=== PATIENT | male | born 1955 | race Caucasian/White ===

== ENCOUNTER → 2022-11-04 | Outpatient (CLI) | payer MEDICARE ==
[2022-11-04 12:28] LABS: Partial Thromboplastin Time 24.7 sec (22.0-30.0)
[2022-11-04 18:07] LABS: HCT 39.8 % (39.6-50.0); HGB 13.7 g/dL (13.0-17.0); MCH 31.4 pg (27.0-32.0); MCHC 34.4 g/dL (32.0-37.0); MCV 91.3 fL (80.0-97.0); Mean Platelet Volume 9.3 fL (9.5-12.2); NRBC Per 100 WBC 0 /100 WBCS (0.0-0.0); Platelet Count 234 X 10*3/uL (140-440); RBC 4.36 X 10*6/uL (4.40-5.60); RDW 13.1 % (11.5-14.5); WBC 5.74 X 10*3/uL (4.50-10.00)
[2022-11-04 18:17] LABS: African American GFR (CKD) 90.5 (60.0-200.0); Albumin 4.8 g/dL (3.8-4.9); Albumin/Globulin Ratio 1.51 (1.60-3.17); Anion Gap 10.2 mmol/L (10.00-18.00); BUN/Creat Ratio 22.48 Ratio (12.00-20.00); Blood Urea Nitrogen 22.1 mg/dL (9.0-27.0); Calcium 10.5 mg/dL (8.7-10.3); Carbon Dioxide 23.7 mmol/L (20.0-27.5); Globulin 3.2 g/dL (1.6-3.3); Non-African American GFR(CKD) 78.1 (60.0-200.0); Potassium 4.9 mmol/L (3.5-5.5); Total Bilirubin 0.3 mg/dL (0.30-1.20); Total Protein 7.9 g/dL (6.2-8.2)
[2022-11-04 20:04] LABS: Appearance,Urine Clear (Clear); Bilirubin,Urine Negative (Negative); Blood,Urine Negative (Negative); Color,Urine Yellow (Yellow); Ketones,Urine Negative (Negative); Nitrite,Urine Negative (Negative); PH, Urine 6.5 (5.0-8.0); Specific Gravity,Urine 1.007 (1.001-1.030); Urobilinogen,Urine 0.2 (0.2,1.0)
[2022-11-04 22:52] LABS: Prothrombin Time 10.5 sec (9.0-12.0)
== END | disposition home or self-care (01) ==
LOC: LABPAT 10:58
PROVIDERS: ATTEND Orthopaedic Surgery
DX: Z01.818 Encounter for other preprocedural examination (principal); M17.12 Unilateral primary osteoarthritis, left knee
CPT/HCPCS: 80053; 81003; 85027; 85610; 85730; 87070; 93005

== ENCOUNTER 2022-11-19 07:13 | Observation (INO) | payer MEDICARE ==
[~2022-11-19 07:13] MED LIST: ACETAMINOPHEN TAB 500 MG TAB PO PRN; DEXAMETHASONE SOD PHOSPHATE 4 MG/ML 1 ML VIAL IV ONE; GABAPENTIN 300 MG CAP PO PRN; HYDROmorphone 0.5 MG/0.5 ML SYRINGE IVP PRN; LACTATED RINGERS 1,000 ML IV SCH; LIDOCAINE 1% (10MG/ML) FOR IV START INTRADERMA PRN; MELOXICAM 7.5 MG TAB PO PRN; ONDANSETRON 4 MG/2 ML VIAL IVP ONE; TRANEXAMIC ACID IN NACL,ISO-OS 1,000 MG in SALINE 1 100ML.BAG IVPB PRN; VANCOMYCIN 1,750 MG in SODIUM CHLORIDE 0.9% 500 ML 500 ML IVPB PRN
[2022-11-19] MEDS ORDERED: MIDAZOLAM 2 MG/2 ML VIAL IVP ONE (08:37)
[2022-11-19] MEDS ORDERED: fentaNYL (PF) 50 MCG/1 ML VIAL IVP ONE (08:39)
--- NOTE | 2022-11-19 09:01 | P.ANPRN ---
Procedure Note - Anesthesia - Nerve Block Performed Left Adductor Canal Infusion Time Out Performed: Yes Date of Procedure: 11/19/22 Procedure Start Time: 08:35 Procedure Stop Time: 08:56 Location of Patient: PreOp Indication: Acute Post-Operative Pain, Requested by Surgeon Sedation Type: Sedate with meaningful contact maintained Preparation: Sterile Prep, Sterile Dressing Position: Supine Needle Types: On-Q Needle Gauge: 21 Ultrasound used to visualize needle placement: Yes Ultrasound used to observe medication spread: Yes Injectate: 0.5% Ropivacaine (see comment for volume) (30) Blood Aspirated: No Pain Paresthesia on Injection Noted: No Resistance on Injection: Normal Image Stored and Saved: Yes Left iPack Time Out Performed: Yes Date of Procedure: 11/19/22 Procedure Start Time: 08:26 Procedure Stop Time: 08:33 Location of Patient: PreOp Indication: Acute Post-Operative Pain, Requested by Surgeon Sedation Type: Sedate with meaningful contact maintained Preparation: Sterile Prep, Sterile Dressing Position: Supine Needle Types: Pajunk Needle Gauge: 21 Ultrasound used to visualize needle placement: Yes Ultrasound used to observe medication spread: Yes Injectate: 0.5% Ropivacaine (see comment for volume) (15) Blood Aspirated: No Pain Paresthesia on Injection Noted: No Resistance on Injection: Normal Image Stored and Saved: Yes
[2022-11-19] MEDS ORDERED: MIDAZOLAM 2 MG/2 ML VIAL ONE (09:02)
[2022-11-19] MEDS ORDERED: fentaNYL (PF) 50 MCG/ML 2 ML AMP ONE (09:02)
[2022-11-19] MEDS ORDERED: PHENYLEPHRINE-0.9% NACL SYG 1,000 MCG/10 ML SYRINGE ONE (09:02)
[2022-11-19] MEDS ORDERED: PROPOFOL 10 MG/ML 20 ML VIAL IV ONE (09:02)
[2022-11-19] MEDS ORDERED: VANCOMYCIN 1,000 MG VIAL ONE (09:02)
[2022-11-19] MEDS ORDERED: diphenhydrAMINE 50 MG/ML 1 ML VIAL ONE (09:02)
[2022-11-19] MEDS ORDERED: ROPIVACAINE 5 MG/ML 30 ML VIAL ONE (09:02)
[2022-11-19] MEDS ORDERED: KETAMINE 10 MG/ML 20 ML VIAL ONE (09:02)
--- NOTE | 2022-11-19 10:19 | P.OP ---
Date of Procedure: 11/19/22 Preoperative Diagnosis: Severe osteoarthritis left knee Postoperative Diagnosis: Severe Osteoarthritis left knee Procedure(s) Performed: Left total knee arthroplasty Implants: Toney [employer] Nephew Journey II CR Oxinium cruciate retaining femoral component size 6, left Toney [employer] Nephew Journey nonporous tibial baseplate size 6, left Toney [employer] Nephew Journey II, XLPE Deep Dished articular insert, size 9 mm, Size 5- 6, left [employer] Nephew Journey Gertrudis II resurfacing patellar component, oval, 32 mm All components were cemented using Palacos R bone cement The articulation is Oxinium on polyethylene Anesthesia: spinal Surgeon: Misael Gonzalez Poker Prop Player #1: Hattie Wharton Estimated Blood Loss (ml): 30 Pathology: other (Bone and cartilage) Condition: stable Disposition: PACU Indications for Procedure: This is a 67-year-old male with a history of left knee osteoarthritis. The patient's knee is end-stage, and conservative management has failed. The operation of knee replacement has been discussed at length in the office, as well as potential risks and complications. These are inclusive of, but not limited to: Infection, bleeding, scarring, discomfort, stiffness, blood vessel and nerve damage, need for further surgery, failure to relieve symptoms, persistence, recurrence, or worsening of problems, loosening, dislocation, wear, blood clot, pulmonary embolism, , gait dysfunction, stiffness, and other risks as discussed in the office. Patient elects to proceed and the consent form has been signed. Operative Findings: The operative findings are consistent with severe osteoarthritis of the left knee Description of Procedure: Patient was seen in the preoperative area and the consent was reviewed and the operative site was marked with a skin marker. The patient verified the procedure and the operative site. An adductor canal pain catheter and an IPACK block were placed by anesthesia in the preoperative area. The patient was then brought to the operating room and positioned on the operating room table in the supine position. Preoperative antibiotics and a gram of transexamic acid were given intravenously. A spinal anesthetic was administered by the anesthesia department. Care was taken to make sure that all pressure points were adequately padded. A tourniquet was placed on the upper thigh and the lower extremity was prepped with ChloraPrep and draped in usual sterile fashion. A universal timeout was then performed which confirmed the patient's name, surgical site, ALLERGIES, and consent. The lower extremity was then exsanguinated and tourniquet was inflated to 250 mmHg. A standard anterior midline approach to the knee was performed. The skin and subcutaneous tissue were sharply dissected down to the patellar tendon. A medial parapatellar arthrotomy was then performed. The knee was then extended, the patellar was everted, and the knee was flexed. The infra-patellar fat pad was removed in order to enhance exposure. The anterior horns of both menisci were excised, and a release was performed to the posterior medial aspect of the knee. On gross visual inspection, there was complete loss of articular cartil age in the medial and patellofemoral joint spaces. There was also significant cartilage damage in the lateral compartment. There were multiple periarticular osteophytes globally about the knee which were then removed with a Ronguer. The femoral canal was then opened with the 9.5 mm intramedullary drill. The 8 mm intramedullary chris was then inserted into the femoral canal with the distal femoral cutting guide set for 5 of valgus. The distal femoral cutting block was then pinned in place. The intramedullary chris was then removed, and the distal femur was then cut. The cutting block was then removed and the cut was checked for symmetry. The resected bone was then measured to confirm the appropriate distal femoral resection. Next, the sizing guide was then placed and set for 3 external rotation based off of the epicondylar axis and Kelechi's line. Pins were then placed and the drill holes, and the femur was sized with the sizing stylus. The pins were then removed, and the sizing guide was then removed. The spikes of the appropriate size femoral block was then placed into the predrilled holes, and malleted into place. Two 45 mm pins were then placed into the fixation holes on the cutting block. An anival wing was then used to ensure there would be no notching with the anterior cut. The anterior condyles were cut without notching. The anterior chord cut was then performed, followed by the posterior cut, posterior chamfer cut, and the anterior chamfer cut. The collateral ligaments were protected during the entire process. The cutting block was then removed. Any remaining bone and osteophytes were removed from the femur with a Ronguer. Attention was then directed to the tibia. The remaining ACL was removed with a Ronguer, and the tibia was then gently subluxed forward with a large bent knee retractor. Any remaining menisci were excised. The posterior lateral corner was cauterized in order to coagulate the lateral geniculate artery. The extra medullary tibial cutting guide was then placed, set for the appropriate rotation, slope, and depth of resection. The proximal tibia cutting guide was then pinned in place. Proximal tibia was then cut and sized. A curved osteotome was then used to remove any posterior osteophytes from the distal femur. The femoral trial was placed. A narrow saw blade was then used to remove the anterior intracondylar femoral bone. The CR notch trial was then placed. The tibial trial was placed with the appropriate-sized insert. The knee was able to fully extend and flex to 130 and was stable throughout all range of motion. The knee was then extended and the patella was everted. Patella was then measured, and then using an osteotomy guide, the patella was cut at the appropriate level. The patellar component was sized. The patellar drill guide was placed and the patella was drilled. The patella trial was then placed. The knee was then taken through range of motion with the patella trial and the patella tracked normally using the no thumbs technique. The patella trial was then removed. The knee was then flexed and lug holes were drilled through the femoral trial and the femoral trial was then removed. The tibial was then re- exposed, and the tibial broach guide was then pinned in place after it was set for the appropriate rotation to allow for the most coverage without overhang. The tibia was then reamed and broached. The femoral canal was plugged with autologous bone. The cut surfaces of bone were then irrigated with pulsatile lavage. The knee was also irrigated with Irrisept solution. The components were then opened, the cement was mixed. Cement was placed on the backside of the femoral, tibial, and patellar components. Cement was then applied to the tibial surface and pressurized into the surface using finger pressurization technique. The tibial component was then applied and excess cement was removed after it was impacted securely noted to be flush with the cut surface. In similar fashion, the cement was applied to the cut femoral surface, pressurized and using finger pressurization the component was impacted in place. Excess cement was removed. The polyethylene spacer was then implanted and locked into position. Patellar component was then applied in a similar technique and the patellar clamp was used to hold patella in place while the cement hardened. The knee was held in full extension while the cement hardened. Once the cement had fully hardened, the knee was reinspected. Any other cement extrusion was removed the final range of motion testing showed range of motion from 0-130 with excellent stability, both medial and laterally and appropriate alignment of the leg. Patella tracked normally[default value] After the cemented hardened, the tourniquet was released and hemostasis was obtained. A second gram of transexamic acid was given intravenously. The knee was again irrigated. The knee was again taken through range of motion and found to be stable throughout all range of motion of 0-130, and the patella tracked normally. The fascia was then closed with 0 Vicryl followed by #2 strata fix suture. The subcutaneous tissue was closed with 3-0 Vicryl and 3-0 strata fix. Exofin glue was used for the skin and placed with the knee in flexion. After the glue had dried, and Optafoam silver impregnated dressing was applied. A lightly compressive dressing was applied using web roll and Alban wrap. Patient was then transferred to the stretcher and taken to recovery room in stable condition. Sponge and needle counts were correct. The occupational therapist assistant JENNIFER Serrato was required due the complexity surgery and the need for a skilled neurosurgical nurse. She assisted in positioning, draping, retraction, and closure of the wound.
[2022-11-19] MEDS ORDERED: ONDANSETRON 4 MG/2 ML VIAL IVP PRN (10:51)
[2022-11-19] MEDS ORDERED: NA PHOS,M-B/NA PHOS,DI-BA 133 ML ENEMA RECTAL PRN (10:51)
[2022-11-19] MEDS ORDERED: NALOXONE 0.4 MG/ML 1 ML VIAL IV PRN (10:51)
[2022-11-19] MEDS ORDERED: bisacodyL 10 MG SUPP RECTAL PRN (10:51)
[2022-11-19] MEDS ORDERED: HYDROmorphone 0.5 MG/0.5 ML SYRINGE IVP PRN ×2 (10:51)
[2022-11-19] MEDS ORDERED: MAGNESIUM HYDROXIDE 2,400 MG/10 ML CUP PO PRN (10:51)
[2022-11-19] MEDS ORDERED: VANCOMYCIN IV PER PHARMACY 1 EACH MISC MISCELLANE PRN (10:53)
[2022-11-19] MEDS ORDERED: HYDROcodone/APAP 7.5-325MG 1 EACH TAB PO PRN (10:53)
[2022-11-19] MEDS ORDERED: LACTATED RINGERS 1,000 ML IV ONE ×2 (11:00)
--- NOTE | 2022-11-19 11:49 | XR ---
EXAMINATION TYPE: XR knee limited LT DATE OF EXAM: 11/19/2022 COMPARISON: NONE TECHNIQUE: Two views submitted HISTORY: Post op FINDINGS: There is a prosthetic knee in near anatomic alignment. There is soft tissue edema and emphysema. Va scular calcification noted. IMPRESSION: 1. Postoperative change. Appears in near-anatomic alignment
[2022-11-19] MEDS: SODIUM CHLORIDE 0.9% 1,000 ML IV SCH ×2 (14:02→20:32)
[2022-11-19] MEDS: HYDROmorphone 0.5 MG/0.5 ML SYRINGE IVP PRN ×2 (16:29→20:40)
[2022-11-19] MEDS: ASPIRIN 81 MG PO SCH (20:32)
[2022-11-19] MEDS ORDERED: SENNOSIDES-DOCUSATE SODIUM 1 EACH TAB PO SCH (21:00)
[2022-11-19] MEDS ORDERED: VANCOMYCIN 2,000 MG in SODIUM CHLORIDE 0.9% 500 ML 500 ML IVPB SCH (21:00)
[2022-11-19] MEDS: HYDROcodone/APAP 7.5-325MG 1 EACH TAB PO PRN (23:24)
[2022-11-20] MEDS: HYDROmorphone 0.5 MG/0.5 ML SYRINGE IVP PRN (04:15)
--- NOTE | 2022-11-20 07:35 | P.PN ---
Progress Note - Text Progress Note Date: 11/20/22 Postoperative day # 1 status post total knee arthroplasty, and adductor canal catheter placed for postoperative analgesia, currently at ropivacaine 0.2% 8 mL per hour and continuous infusion, visual analogue scale is 3/10, patient using oral pain medication for breakthrough pain. Assessment and plan= Acute postoperative pain, adductor canal catheter for pain control, pain is well controlled we'll continue the same management.
--- NOTE | 2022-11-20 08:29 | P.DS ---
Providers Expected date of discharge: 11/20/22 Attending physician: Misael Gonzalez Consults: 11/19/22 10:51 Consult Physician Routine Consulting Provider: Dony Montgomery Consult Reason/Comments: medical management Do you want consulting provider notified?: Yes Primary care physician: Raymond Adams - Discharge Diagnosis(es) (1) Primary localized osteoarthritis of left knee Current Visit: Yes Status: Acute (2) Status post total left knee replacement Current Visit: Yes Status: Acute Hospital Course: This is a 67-year-old male who was last seen with complaint of continued left knee pain. The patient has a known history of degenerative arthritis of the left knee and presents to discuss surgical options. After discussion and consideration the patient elects to proceed with total left knee arthroplasty. The patient is seen preoperatively by his primary care physician and cleared for surgery. The patient is admitted to [facility] for total left knee arthroplasty. The procedure is performed without complication or sequelae. He is doing well postoperatively. Vital signs are stable at discharge. Labs are stable at discharge. the patient is ambulating well with walker with minimal assistance. The patient is discharged to home on postop day #1 pending medical clearance. Please see orders and refer to the med rec for accurate list of medications. Patient Condition at Discharge: Good Plan - Discharge Summary Discharge Rx Participant: No New Discharge Prescriptions: New Aspirin [Adult Low Dose Aspirin EC] 81 mg PO BID 30 Days #60 tab Sennosides [Senokot] 2 tab PO DAILY PRN #60 tablet PRN Reason: Constipation HYDROcodone/APAP 7.5-325MG [[place] 7.5-325] 1 - 2 tab PO Q6H PRN #32 tab PRN Reason: Pain No Action Clopidogrel [Plavix] 75 mg PO DAILY Levothyroxine Sodium 88 mcg PO QAM Aspirin [Adult Low Dose Aspirin EC] 81 mg PO QAM Multivitamins, Thera [Multivitamin (formulary)] 1 tab PO DAILY Cholecalciferol [Vitamin D3 (25 Mcg = 1000 Iu)] 1 tab PO DAILY Lovastatin [Mevacor] 20 mg PO QAM lisinopriL [Zestril] 20 mg PO QAM gemfibroziL [Lopid] 600 mg PO BID Omeprazole Magnesium [PriLOSEC OTC] 20 mg PO QAM PRN PRN Reason: GERD SYMPTOMS Discharge Medication List Aspirin [Adult Low Dose Aspirin EC] 81 mg PO QAM 11/15/22 [History] Cholecalciferol [Vitamin D3 (25 Mcg = 1000 Iu)] 1 tab PO DAILY 11/15/22 [History] Clopidogrel [Plavix] 75 mg PO DAILY 11/15/22 [History] Levothyroxine Sodium 88 mcg PO QAM 11/15/22 [History] Lovastatin [Mevacor] 20 mg PO QAM 11/15/22 [History] Multivitamins, Thera [Multivitamin (formulary)] 1 tab PO DAILY 11/15/22 [History] Omeprazole Magnesium [PriLOSEC OTC] 20 mg PO QAM PRN 11/15/22 [History] gemfibroziL [Lopid] 600 mg PO BID 11/15/22 [History] lisinopriL [Zestril] 20 mg PO QAM 11/15/22 [History] Aspirin [Adult Low Dose Aspirin EC] 81 mg PO BID 30 Days #60 tab 11/19/22 [Rx] HYDROcodone/APAP 7.5-325MG [[place] 7.5-325] 1 - 2 tab PO Q6H PRN #32 tab 11/19/22 [Rx] Sennosides [Senokot] 2 tab PO DAILY PRN #60 tablet 11/19/22 [Rx] Follow up Appointment(s)/Referral(s): Misael Gonzalez DO [Doctor of Osteopathic Medicine] - 2 Weeks Activity/Diet/Wound Care/Special Instructions: Weightbearing as tolerated with a walker. CPM 5-6h daily as tolerated. Leave dressing intact. Dressing may be removed by home care nurse or by patient in 7 days. Then change dressing twice daily until follow up. May shower with initial dressing intact and after removal. If dressing become saturated, please remove. Recommend use of compression stockings daily until follow up to help prevent swelling and blood clots. May remove at night before sleeping. Please resume Plavix and aspirin. Take aspirin 81mg twice daily for one month postoperatively to help prevent blood clots. Please follow up with [facility] and call with any questions or concerns, .
[2022-11-20 08:33] VITALS: BP 129/69; PULSE 75; RESP 16; TEMP 97.9
[2022-11-20] MEDS ORDERED: CLOPIDOGREL 75 MG TAB PO SCH (09:00)
[2022-11-20 09:18] LABS: African American GFR (CKD) 88.6 (60.0-200.0); Non-African American GFR(CKD) 76.5 (60.0-200.0)
[2022-11-20 09:25] LABS: Basophils # (A) 0.01 X 10*3/uL (0.00-0.10); Basophils % (A) 0.1 %; Eosinophils # (A) 0.04 X 10*3/uL (0.04-0.35); Eosinophils % (A) 0.5 %; HCT 29.6 % (39.6-50.0); HGB 10.5 g/dL (13.0-17.0); Immature Grans, Automated 0.3 %; Lymphocytes # (A) 1.02 X 10*3/uL (0.90-5.00); Lymphocytes % (A) 13.1 %; MCH 31.9 pg (27.0-32.0); MCHC 35.5 g/dL (32.0-37.0); Mean Platelet Volume 9.5 fL (9.5-12.2); Monocytes # (A) 0.48 X 10*3/uL (0.20-1.00); Monocytes % (A) 6.2 %; NRBC Per 100 WBC 0 /100 WBCS (0.0-0.0); Neutrophils % (A) 79.8 %; Platelet Count 170 X 10*3/uL (140-440); RBC 3.29 X 10*6/uL (4.40-5.60); RDW 13.1 % (11.5-14.5); WBC 7.77 X 10*3/uL (4.50-10.00)
[2022-11-20] MEDS: ASPIRIN 81 MG PO SCH (09:36)
[2022-11-20] MEDS: HYDROcodone/APAP 7.5-325MG 1 EACH TAB PO PRN ×2 (09:40→14:39)
--- NOTE | 2022-11-20 16:19 | P.HPIM ---
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 He presents for planned left knee arthroplasty and is monitored today postoperative day #1. Today he reports pain about 3/10 to the left knee he has ambulated in the [address] way. Denies shortness of breath, denies chest pain. He is maintained on Plavix 5 mg daily outpatient secondary to a carotid stent, patient is recommended to hold and continue on low-dose aspirin 81 mg twice a day for one month. Once stopping aspirin, resume plavix 75 mg daily. Labs today show a white count of 7.77, hemoglobin 10.5, creatinine 1.0. Afebrile, heart rate 75, blood pressure 129/69, 94% room air. He is also recommended to hold his lisinopril postoperatively and monitor blood pressure at home. Blood pressure remains in the 120s or above and he can resume his lisinopril. She will follow up with his PCP was Dr. Raymond Adams in 1-2 days and is scheduled to see orthopedics Dr. Gonzalez on November 29 at 245. Medically he can be cleared for discharge today. Thank you for this consult. REVIEW OF SYSTEMS: CONSTITUTIONAL: No fever, no malaise, no fatigue. HEENT: No recent visual problems or hearing problems. Denied any sore throat. CARDIOVASCULAR: No chest pain, orthopnea, PND, no palpitations, no syncope. PULMONARY: No shortness of breath, no cough, no hemoptysis. GASTROINTESTINAL: No diarrhea, no nausea, no vomiting, no abdominal pain. NEUROLOGICAL: No headaches, no weakness, no numbness. HEMATOLOGICAL: Denies any bleeding or petechiae. GENITOURINARY: Denies any burning micturition, frequency, or urgency. MUSCULOSKELETAL/RHEUMATOLOGICAL: Denies any joint pain, swelling, or any muscle pain. 3/10 pain to left knee ENDOCRINE: Denies any polyuria or polydipsia. The rest of the 14-point review of systems is negative. PHYSICAL EXAMINATION: GENERAL: The patient is alert and oriented x3, not in any acute distress. Well developed, well nourished. HEENT: Pupils are round and equally reacting to light. EOMI. No scleral icterus. No conjunctival pallor. Normocephalic, atraumatic. No pharyngeal erythema. No thyromegaly. CARDIOVASCULAR: S1 and S2 present. No murmurs, rubs, or gallops. PULMONARY: Chest is clear to auscultation, no wheezing or crackles. ABDOMEN: Soft, nontender, nondistended, normoactive bowel sounds. No palpable organomegaly. MUSCULOSKELETAL: No joint swelling or deformity. EXTREMITIES: No cyanosis, clubbing, or pedal edema. Post surgical dressing i ntact minimal swelling at surgical site. NEUROLOGICAL: Gross neurological examination did not reveal any focal deficits. SKIN: No rashes. Assessment and plan Assessment Postoperative day #1 left knee arthroplasty secondary to osteoarthritis, anticoagulation recommendations as per primary History of hypertension currently normotensive recommend to hold lisinopril and monitor blood prssure. can resume lisinopril if blood pressure elevates above 120s systolic and remains. History tongue/lymph node cancer with resection and chemoradiation History carotid stent on the right on plavix GERD continues on PPI omeprazole and recommend to continue on discharge. Hypothyrodism Dyslipidemia maintained on gemfibrizol and lovastatin Former Smoker GI prophylaxis DVT prophylaxis as per primary Full Code Plan Resume appropriate home medications Hold lisinopril and also hold plavix. Resume plavix after completing 30 days of aspirin 81 mg po BID Follow up with orthopedics Follow up with primary care provider Cleared medically for discharge. Thank you for this consultation The impression and plan of care has been dictated by Nayana Mclaughlin Nurse Practitioner as directed. Dr. Oswaldo MD I have performed a history and physical examination and medical decision making of this patient, discussed the same with the dictator, and agree with the [facility] and plan as written, documented as a scribe. Based on total visit time, I have performed more than 50% of this visit. Past Medical History Past Medical History: Cancer, GERD/Reflux, Hyperlipidemia, Hypertension, Osteoarthritis (OA), Thyroid Disorder Additional Past Medical History / Comment(s): CANCER OF TONGUE AND LYMPH NODES, SURGERY, RADIATION, CHEMO (CANCER FREE FOR ABOUT 9 YEARS). History of Any Multi-Drug Resistant Organisms: None Reported Past Surgical History: Orthopedic Surgery Additional Past Surgical History / Comment(s): LEFT SHOULDER ROTATOR CUFF REPAIR. RIGHT CAROTID STENT (2019). REMOVAL OF 1/3 TONGUE (CANCER). Past Anesthesia/Blood Transfusion Reactions: No Reported Reaction Past Psychological History: No Psychological Hx Reported Smoking Status: Former smoker Past Alcohol Use History: Heavy Additional Past Alcohol Use History / Comment(s): QUIT SMOKING ABOUT 20 YEARS AGO (2001). 3-4 BEERS A DAY. Past Drug Use History: None Reported - Past Family History Mother Family Medical History: No Reported History Medications and Allergies Home Medications Medication Instructions Recorded Confirmed Type Aspirin [Adult Low Dose Aspirin EC] 81 mg PO QAM 11/15/22 11/15/22 History Cholecalciferol [Vitamin D3 (25 1 tab PO DAILY 11/15/22 11/15/22 History Mcg = 1000 Iu)] Levothyroxine Sodium 88 mcg PO QAM 11/15/22 11/15/22 History Lovastatin [Mevacor] 20 mg PO QAM 11/15/22 11/15/22 History Multivitamins, Thera [Multivitamin 1 tab PO DAILY 11/15/22 11/15/22 History (formulary)] Omeprazole Magnesium [PriLOSEC OTC] 20 mg PO QAM PRN 11/15/22 11/15/22 History gemfibroziL [Lopid] 600 mg PO BID 11/15/22 11/15/22 History Aspirin [Adult Low Dose Aspirin EC] 81 mg PO BID 30 Days #60 tab 11/19/22 Rx HYDROcodone/APAP 7.5-325MG [[place] 1 - 2 tab PO Q6H PRN #32 tab 11/19/22 Rx 7.5-325] Sennosides [Senokot] 2 tab PO DAILY PRN #60 tablet 11/19/22 Rx Allergies Allergy/AdvReac Type Severity Reaction Status Date / Time Cephalosporins Allergy Anaphylaxis Verified 11/19/22 07:39 acetaminophen [From Vicodin] AdvReac Confusion, Verified 11/19/22 07:39 SLEEPINESS hydrocodone [From Vicodin] AdvReac Confusion, Verified 11/19/22 07:39 SLEEPINESS Physical Exam Vitals: Vital Signs Temp Pulse Resp BP BP Pulse Ox 11/20/22 08:00 97.9 F 75 16 129/69 94 L 11/20/22 01:24 98.4 F 74 18 122/60 94 L 11/19/22 19:39 97.3 F L 75 18 100/58 92 L 11/19/22 15:26 98.3 F 85 16 145/64 94 L 11/19/22 14:00 73 15 144/67 97 11/19/22 13:15 64 15 138/76 97 11/19/22 12:46 63 15 143/71 97 11/19/22 12:17 63 17 124/60 97 11/19/22 11:50 62 17 113/62 97 11/19/22 11:35 55 L 16 105/55 97 11/19/22 11:20 58 L 18 99/61 96 11/19/22 11:05 58 L 20 88/51 93 L 11/19/22 10:50 97.8 F 66 20 96/52 97 Intake and Output 11/19/22 11/20/22 11/20/22 22:59 06:59 14:59 Output Total 450 300 Balance -450 -300 Output: Urine 450 300 Other: Voiding Method Urinal Results CBC & Chem 7: 11/20/22 04:02 11/20/22 04:02 Labs: Abnormal Lab Results - Last 24 Hours (Table) 11/20/22 Range/Units 04:02 RBC 3.29 L (4.40-5.60) X 10*6/uL Hgb 10.5 L (13.0-17.0) g/dL Hct 29.6 L (39.6-50.0) % Thrombosis Risk Factor Assmnt - Choose All That Apply Each Factor Represents 1 point: Obesity (BMI >25) Each Risk Factor Represents 2 Points: Age 61-74 years, Major surgery Each Risk Factor Represents 5 Points: Elective major lower extremity arthoplasty Thrombosis Risk Factor Assessment Total Risk Factor Score: 10 Thrombosis Risk Factor Assessment Level: High Risk Assessment and Plan Time with Patient: Less than 30
== END 2022-11-20 15:18 | disposition home health service (06) ==
LOC: OR 07:13 → 4SSUR 10:51 → OR 11-20 08:10 → 4SSUR 11-20 08:10
PROVIDERS: ADMIT Orthopaedic Surgery; ATTEND Orthopaedic Surgery
DX: M17.12 Unilateral primary osteoarthritis, left knee (principal); G89.18 Other acute postprocedural pain; I10 Essential (primary) hypertension; E03.9 Hypothyroidism, unspecified; H91.90 Unspecified hearing loss, unspecified ear; E78.2 Mixed hyperlipidemia; E66.9 Obesity, unspecified; Z68.36 Body mass index [BMI] 36.0-36.9, adult; K21.9 Gastro-esophageal reflux disease without esophagitis; M21.162 Varus deformity, not elsewhere classified, left knee; Z79.02 Long term (current) use of antithrombotics/antiplatelets; Z79.82 Long term (current) use of aspirin; Z79.899 Other long term (current) drug therapy; Z88.1 Allergy status to other antibiotic agents; Z88.5 Allergy status to narcotic agent; Z88.6 Allergy status to analgesic agent; Z87.891 Personal history of nicotine dependence; Z92.21 Personal history of antineoplastic chemotherapy; Z92.3 Personal history of irradiation; Z97.3 Presence of spectacles and contact lenses; Z85.819 Personal history of malignant neoplasm of unspecified site of lip, oral cavity, and pharynx; Z95.828 Presence of other vascular implants and grafts; Z98.890 Other specified postprocedural states; Z82.49 Family history of ischemic heart disease and other diseases of the circulatory system
CPT/HCPCS: 97116; 97162; 64999; 64448; 76942; 82565; 85025; 73560; 27447; G0378; C1713; C1776; C1751; J2250; J3370; J1200; J1100; J2405; J3010 ×2; J2795; J2370; J2704; J1170 ×2